=== PATIENT | female | born 1975 | race Caucasian/White ===

== ENCOUNTER 2017-02-04 11:57 | Emergency (ER) | payer BC, OTHER ==
[2017-02-04 12:06] VITALS: BP 101/76; PULSE 82; RESP 16; TEMP 98.2; O2SAT 96
--- NOTE | 2017-02-04 12:25 | EDPHY ---
H & P Time Seen by Provider: 02/04/17 12:03 HPI/ROS: 41-year-old female presents complaining of right posterior calf pain for several days, she cannot recall any injury no prolonged immobility however she does sit at a desk for long periods of time. She is not currently on hormonal therapy. She has no prior history of DVT or clotting disorder in her family. No fevers or chills She does states she has noted recently that she has intermittent low back pain although has not associated it specifically with the right lower leg pain No numbness or tingling in her leg, no weakness Review of systems General no fever no chills no weakness HEENT no eye pain no eye discharge. No eye redness, no sore throat Respiratory no cough, no shortness of breath Cardiac no chest pain, no peripheral edema GI no abdominal pain, no diarrhea, no constipation, no nausea, no vomiting no flank pain, no hematuria, no dysuria Musculoskeletal positive myalgias, no joint pain Heme no easy bruising, no easy bleeding Endo no polyuria, no polydipsia Skin no rashes, no pruritus Neuro no syncope, no dizziness, no headaches Psych is no suicidal ideation, no homicidal ideation Past Medical/Surgical History: ADD Social History: No excessive alcohol or drug use Smoking Status: Former smoker Physical Exam: 41-year-old female alert and oriented no acute distress nontoxic appearance afebrile HEENT atraumatic normocephalic, extraocular muscles intact, anicteric Oropharynx negative for erythema negative exudate, tolerating her own secretions Neck supple no meningismus Lungs clear to auscultation bilaterally Heart regular rate and rhythm without murmur rub or gallop Abdomen nondistended normoactive bowel sounds soft nontender Back no CVA tenderness, no step-offs, no spinal tenderness Extremities no cyanosis clubbing or edema Right posterior calf no erythema, no visible swelling no ecchymosis, mild tenderness to palpation midline posterior calf Neuro alert and oriented, no focal deficits Constitutional: Initial Vital Signs Temperature (C) 36.8 C 02/04/17 11:59 Heart Rate 82 02/04/17 11:59 Respiratory Rate 16 02/04/17 11:59 Blood Pressure 101/76 02/04/17 11:59 O2 Sat (%) 96 02/04/17 11:59 O2 Delivery Mode Room Air Allergies/Adverse Reactions: No Known Allergies Allergy (Verified 02/04/17 12:06) Home Medications: Medication Instructions Recorded Adderall 10 MG (*) 02/04/17 Medical Decision Making - Diagnostics Imaging Results: Imaging Impressions Extremity Venous Study 02/04/17 12:24 Impression: No deep venous thrombosis right leg. Findings and recommendations discussed with Emergency Department physician, Tabby Seth MD at 13:32 hour, 02/04/2017. Final report concurs with initial preliminary interpretation. ED Course/Re-evaluation: Patient seen and evaluated for right calf pain Differential diagnosis considered Muscle strain, lumbar radiculopathy, DVT Ultrasound negative for DVT Impression Right calf pain nonspecific Plan Rest ice ibuprofen Follow-up PCP Departure - Departure Disposition: Home, Routine, Self-Care Clinical Impression: Right calf pain Condition: Good Instructions: Acute Low Back Pain (ED), Leg Pain (ED) Referrals: Indira Escobedo PA [Primary Care Provider] - As per Instructions
== END 2017-02-04 13:47 | disposition home or self-care (01) ==
LOC: CED 11:57
DX: M79.604 Pain in right leg (principal); Z87.891 Personal history of nicotine dependence
CPT/HCPCS: 93971-PO

== ENCOUNTER → 2018-11-03 | Outpatient (CLI) | payer BC | LOC: CIMAGING 12:48 | PROVIDERS: ATTEND Physician Assistant Medical | DX: Z12.31 Encounter for screening mammogram for malignant neoplasm of breast (principal); Z80.3 Family history of malignant neoplasm of breast ==